=== PATIENT | female | born 1965 | race Caucasian/White ===

== ENCOUNTER 2019-02-06 19:06 | Emergency (ER) | payer OTHER ==
--- NOTE | 2019-02-06 19:12 | ERPHSYRPT ---
- History of Present Illness Time Seen by Provider: 02/06/19 19:12 Source: patient, family Exam Limitations: no limitations Physician History: 53 y/o white female presents with new roof of mouth swelling and tenderness present since yesterday. bigger today. nkda. no meds. pt was planning on seeing dentist tomorrow Timing/Duration: gradual onset Severity: mild ENT Location: dental Prearrival Treatment: over the counter meds (ibuprofen) Modifying Factors: Improves With: activity Associated Symptoms: tooth pain, No sore throat, No difficulty swallowing, No voice change Allergies/Adverse Reactions: No Known Drug Allergies Allergy (Unverified 02/06/19 19:20) - Review of Systems Constitutional: No Symptoms Eyes: No Symptoms Ears, Nose, & Throat: Other (dental pain) Respiratory: No Symptoms Cardiac: No Symptoms Abdominal/Gastrointestinal: No Symptoms Genitourinary Symptoms: No Symptoms Musculoskeletal: No Symptoms Skin: No Symptoms Neurological: No Symptoms Psychological: No Symptoms Endocrine: No Symptoms Hematologic/Lymphatic: No Symptoms Immunological/Allergic: No Symptoms All Other Systems: Reviewed and Negative - Past Medical History Neurological History: No Pertinent History ENT History: No Pertinent History Cardiac History: No Pertinent History Respiratory History: No Pertinent History Endocrine Medical History: No Pertinent History Musculoskeletal History: No Pertinent History GI Medical History: No Pertinent History History: No Pertinent History Psycho-Social History: No Pertinent History Female Reproductive Disorders: No Pertinent History - Past Surgical History Past Surgical History: No Neuro Surgical History: No Pertinent History Cardiac: No Pertinent History Respiratory: No Pertinent History Gastrointestinal: No Pertinent History Genitourinary: No Pertinent History Musculoskeletal: No Pertinent History Female Surgical History: No Pertinent History - Nursing Vital Signs Nursing Vital Signs: Initial Vital Signs Temperature 97.7 F 02/06/19 19:11 Pulse Rate 83 02/06/19 19:11 Respiratory Rate 17 02/06/19 19:11 Blood Pressure 150/87 02/06/19 19:11 O2 Sat by Pulse Oximetry 100 02/06/19 19:11 Pain Scale Pain Intensity 10 - Physical Exam General Appearance: no apparent distress, alert, anxiety Eye Exam: bilateral eye: normal inspection, PERRL, EOMI Ear Exam: bilateral ear: auricle normal Nasal Exam: normal inspection Throat Exam: normal, pharynx normal, dental tenderness (tissue swelling roof of mouth ant midline. generalized poor dentition) Neck Exam: normal inspection, non-tender, supple, full range of motion, trachea midline Cardiovascular/Respiratory Exam: chest non-tender Abdominal Exam: non-tender Neurologic Exam: alert, oriented x 3, cooperative, shoe singer II-XII nml as tested Skin Exam: normal color, warm, dry SpO2 Interpretation: normal O2 Delivery: Room Air - Course Nursing assessment & vital signs reviewed: Yes - Progress Progress: unchanged Counseled pt/family regarding: diagnosis, need for follow-up - Departure Departure Disposition: Home Clinical Impression: Pain, dental Condition: Stable Critical Care Time: No Referrals: ESTUARDO OCHOA [Primary Care Provider] - Additional Instructions: add ibuprofen and tylenol for pain. follow up with dentist tomorrow as planned. Prescriptions: Amoxicillin 500 mg Cap [Amoxil 500 mg] 500 mg PO TID #30 capsule
[2019-02-06] MEDS ORDERED: Norco 10/325 MG Tablet ONE (19:45)
[2019-02-06] MEDS ORDERED: Norco 10/325 MG Tablet PO ONE (19:45)
[2019-02-06] MEDS ORDERED: AMOXIL 500 MG ONE (19:45)
[2019-02-06] MEDS ORDERED: AMOXIL 500 MG PO ONE (19:45)
[2019-02-06 19:52] VITALS: BP 143/81; PULSE 80; O2SAT 99
== END 2019-02-06 19:57 | disposition home or self-care (01) ==
LOC: ED 19:06
DX: K08.89 Other specified disorders of teeth and supporting structures (principal)
CPT/HCPCS: 99283; A9270-GY